=== PATIENT | female | born 1965 | race Two or more races ===

== ENCOUNTER 2018-08-14 00:23 | Emergency (ER) | payer OTHER ==
[~2018-08-14] VITALS: Ht 162.6 cm; Wt 89.8 kg
--- NOTE | 2018-08-14 00:35 | NUR ---
PT BIBSELF C/O RIGHT SIDE ABDOMINAL PAIN RADIATING TO RIGHT FLANK X1 DAY. 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 PT C/O MULITPLE EPISODES OF VOMITTING. PT APPEARS UNCOMFORTABLE. DENIES SOB, CHEST PAIN, HEADACHE. PT AAOX4. RESPIRATIONS EVEN AND UNLABORED. SKIN WARM AND INTACT. PT AMBULATORY WITH STEADY GAIT, PLACED IN GOWN AND ON MONITOR. WILL CONTINUE TO MONITOR
--- NOTE | 2018-08-14 00:40 | NUR ---
MD AT BEDSIDE FOR EVALUATION
--- NOTE | 2018-08-14 00:45 | NUR ---
URINE COLLECTED AND SENT TO LAB
--- NOTE | 2018-08-14 00:50 | NUR ---
IV INITIATED RIGHT AC 18G. LABS DRAWN FROM SITE. IT PROGRAM AUDITOR AT BEDSIDE FOR COLLECTION. IV INTACT AND PATENT, PLACED ON SALINE LOCK
[2018-08-14 00:55] LABS: BASOPHILS % (AUTO) 0.6 % (0.0-2.0); HEMATOCRIT 41 % (33-45); HEMOGLOBIN 13.9 g/dL (11.5-14.8); LYMPHOCYTES # (AUTO) 2.8 /CMM (0.8-4.8); MEAN CORPUSCULAR HGB CONC 34 g/dl (31.0-36.0); MEAN CORPUSCULAR VOLUME 92 fL (82-100); MONOCYTES # (AUTO) 0.5 /CMM (0.1-1.30); MONOCYTES % (AUTO) 6.9 % (2.0-12.0); NEUTROPHILS # (AUTO) 3.9 /CMM (1.8-8.9); NEUTROPHILS % (AUTO) 53.5 % (43.0-81.0); PLATELET COUNT (AUTO) 309 /CMM (150-450); WHITE BLOOD COUNT (AUTO) 7.2 K/uL (4.3-11.0)
[2018-08-14] MEDS ORDERED: ONDANSETRON HCL/PF 4 MG/2 ML VIAL ONE ×2 (00:57→01:52)
[2018-08-14] MEDS ORDERED: HYDROMORPHONE INJ 0.5 MG/0.5 ML SYRINGE ONE (00:57)
[2018-08-14 00:58] LABS: APPEARANCE,URINE Slightly Cloudy (CLEAR); BILIRUBIN,URINE Negative (NEGATIVE); BLOOD, URINE Small Ery/uL (NEGATIVE); COLOR,URINE Yellow (YELLOW); KETONES,URINE Trace (NEGATIVE); LEUKOCYTE ESTERASE ,URINE Negative (NEGATIVE); NITRITE, URINE Negative (NEGATIVE); PH,URINE 7.5 (5.0-8.0); PROTEIN,URINE 100 mg/dl (NEGATIVE); UGLUCOSE Negative (NEGATIVE); UROBILINOGEN,URINE 0.2 EU/dL (0.2)
[2018-08-14] MEDS: ONDANSETRON HCL/PF 4 MG/2 ML VIAL IVP ONE (01:00)
[2018-08-14] MEDS: IV NS 0.9% 500 ML BAG IV ONE (01:00)
[2018-08-14] MEDS: HYDROMORPHONE INJ 2 MG/ML DISP.SYRIN IV ONE (01:02)
[2018-08-14 01:04] LABS: CARBON DIOXIDE 27 mmol/L (21-32); CHLORIDE 104 mmol/L (98-107); CREATININE 0.7 mg/dL (0.6-1.3); GLUCOSE 122 mg/dL (74-106); POTASSIUM 3.6 mmol/L (3.5-5.1); SODIUM SERUM 140 mmol/L (136-145); UREA NITROGEN, BLOOD 20 mg/dL (7-18)
--- NOTE | 2018-08-14 01:09 | NUR ---
RADIOLOGY AT BEDSIDE FOR CT AND XRAY
[2018-08-14 01:10] LABS: ALANINE AMINOTRANSFERASE 25 U/L (12-78); ALBUMIN 3.8 g/dL (3.4-5.0); ALKALINE PHOSPHATASE 76 U/L (46-116); ASPARTATE AMINOTRANSFERASE 17 U/L (15-37); BILIRUBIN,DIRECT 0.1 mg/dL (0.0-0.2); BILIRUBIN,TOTAL 0.2 mg/dL (0.2-1.0); LIPASE 221 U/L (73-393); TOTAL PROTEIN, SERUM 7.9 g/dL (6.4-8.2)
[2018-08-14 01:27] LABS: BACTERIA,URINE Few /HPF (None Seen); SQUAMOUS EPITHELIAL CELL,UR Few /HPF (None Seen); WBC,URINE 0-2 /HPF (0-3)
--- NOTE | 2018-08-14 01:45 | NUR ---
PT HAD TWO EPISODES VOMITTING. PT APPEARS VERY ANXIOUS, STILL IN PAIN. MD AWARE.
[2018-08-14] MEDS ORDERED: LORAZEPAM INJ 2 MG/ML VIAL ONE (01:53)
[2018-08-14] MEDS: ONDANSETRON HCL/PF 4 MG/2 ML VIAL IV ONE (02:00)
[2018-08-14] MEDS: LORAZEPAM INJ 2 MG/ML VIAL IV ONE (02:03)
[2018-08-14] MEDS ORDERED: KETOROLAC TROMETHAMINE INJ 30 MG/ML VIAL ONE (02:33)
[2018-08-14] MEDS: KETOROLAC TROMETHAMINE INJ 30 MG/ML VIAL IV ONE (02:35)
--- NOTE | 2018-08-14 02:53 | NUR ---
Patient discharged to home in stable condition. Written and verbal after care instructions given. Patient verbalizes understanding of instruction. IV removed. Catheter intact and site benign. Pressure and 4x4 applied to site. No bleeding noted. Pt ambulatory with a steady gait
[2018-08-14 02:54] VITALS: BP 152/91
== END 2018-08-14 02:55 | disposition home or self-care (01) ==
LOC: ER 00:23
DX: N13.2 Hydronephrosis with renal and ureteral calculous obstruction (principal)
CPT/HCPCS: 36415; 71045-TC; 80048-TC; 80076-TC; 81000-TC; 83690-TC; 84484-TC; 85025-TC; 85730-TC; J1885; J2060; J2405; J7040